=== PATIENT | female | born 1985 | race Caucasian/White ===

== ENCOUNTER 2022-02-15 00:12 | Emergency (ER) | payer OTHER, MEDICAID ==
[2022-02-15] MEDS ORDERED: IBUPROFEN600 MG PO (01:28)
== END 2022-02-15 01:40 | disposition home or self-care (01) ==
LOC: ER1 00:12
DX: M25.472 Effusion, left ankle (principal); F17.210 Nicotine dependence, cigarettes, uncomplicated; Z91.040 Latex allergy status; Z88.8 Allergy status to other drugs, medicaments and biological substances
CPT/HCPCS: 73610; 99283